=== PATIENT | female | born 2000 | race Caucasian/White ===

== ENCOUNTER 2020-10-31 12:10 | Emergency (ER) | payer BC | END 2020-10-31 13:45 | disposition left against medical advice (07) | LOC: ER1 12:10 | DX: R05 Cough (principal); J02.9 Acute pharyngitis, unspecified; R51.9 Headache, unspecified; Z90.49 Acquired absence of other specified parts of digestive tract; Z88.6 Allergy status to analgesic agent; Z20.822 Contact with and (suspected) exposure to COVID-19 | CPT/HCPCS: 0240U; 99283 ==

== ENCOUNTER 2021-08-21 20:36 | Outpatient (CLI) | payer BC, OTHER | END 2021-08-21 22:13 | disposition home or self-care (01) | LOC: GENOP 20:36 | DX: O46.92 Antepartum hemorrhage, unspecified, second trimester (principal); Z3A.26 26 weeks gestation of pregnancy | CPT/HCPCS: G0463 ==

== ENCOUNTER 2021-11-06 01:15 | Outpatient (CLI) | payer BC, OTHER | END 2021-11-06 03:15 | disposition home or self-care (01) | LOC: GENOP 01:15 | DX: O47.03 False labor before 37 completed weeks of gestation, third trimester (principal); Z3A.36 36 weeks gestation of pregnancy | CPT/HCPCS: 81001; G0463 ==

== ENCOUNTER 2021-11-14 17:50 | Inpatient (IN) | payer BC, OTHER ==
[~2021-11-14] VITALS: Ht 165.1 cm; Wt 83.9 kg
[2021-11-14 19:27] LABS: RED BLOOD COUNT 3.53 M/UL (4.00-5.10); WHITE BLOOD COUNT 8.6 K/UL (4.5-11.0)
[2021-11-14] MEDS ORDERED: MACROBID 100 M100 MG PO (20:38)
[2021-11-14] MEDS ORDERED: FERROUS SULFAT325 M2 PO (20:39)
[2021-11-14 21:25] LABS: BUN/CREATININE RATIO 10 (0-10)
[2021-11-16 01:32] LABS: HEMOGLOBIN 8.5 gm/dl (12.3-15.3)
[2021-11-17] MEDS ORDERED: DOCUSATE SODIU100 MG PO (12:35)
[2021-11-17] MEDS ORDERED: IBUPROFEN600 MG PO (12:35)
[2021-11-17] MEDS ORDERED: HYDROCODON-ACE1 EAC4 PO (12:35)
[2021-11-17] MEDS ORDERED: FERROUS SULFAT325 M2 PO (12:35)
== END 2021-11-17 14:15 | disposition home or self-care (01) | DRG 807 ==
LOC: OB 17:50
PROVIDERS: Obstetrics & Gynecology; ADMIT Obstetrics & Gynecology
PROC: 10E0XZZ Delivery of Products of Conception, External Approach (ICD-10-PCS; principal; 2021-11-15)
PROC: 0KQM0ZZ Repair Perineum Muscle, Open Approach (ICD-10-PCS; 2021-11-15)
PROC: 10907ZC Drainage of Amniotic Fluid, Therapeutic from Products of Conception, Via Natural or Artificial Opening (ICD-10-PCS; 2021-11-15)
PROC: 3E033VJ Introduction of Other Hormone into Peripheral Vein, Percutaneous Approach (ICD-10-PCS; 2021-11-15)
PROC: 4A1H7CZ Monitoring of Products of Conception, Cardiac Rate, Via Natural or Artificial Opening (ICD-10-PCS; 2021-11-15)
PROC: 10H073Z Insertion of Monitoring Electrode into Products of Conception, Via Natural or Artificial Opening (ICD-10-PCS; 2021-11-15)
PROC: 0UH97HZ Insertion of Contraceptive Device into Uterus, Via Natural or Artificial Opening (ICD-10-PCS; 2021-11-15)
PROC: 3E0234Z Introduction of Serum, Toxoid and Vaccine into Muscle, Percutaneous Approach (ICD-10-PCS; 2021-11-15)
DX: O13.4 Gestational [pregnancy-induced] hypertension without significant proteinuria, complicating childbirth (principal); Z37.0 Single live birth; O99.02 Anemia complicating childbirth; D64.9 Anemia, unspecified; Z3A.38 38 weeks gestation of pregnancy; O70.1 Second degree perineal laceration during delivery; Z28.310 Unvaccinated for COVID-19; Z90.49 Acquired absence of other specified parts of digestive tract; Z83.3 Family history of diabetes mellitus; Z23 Encounter for immunization
CPT/HCPCS: 36415; 80053; 81001; 82570; 82800; 84132; 84156; 84550; 85014; 85018; 85025; 90471; 90715; J2590